=== PATIENT | female | born 1955 | race Caucasian/White ===

== ENCOUNTER 2018-10-08 05:45 | Day surgery (SDC) | payer OTHER ==
[~2018-10-08] VITALS: Ht 162.6 cm; Wt 84.4 kg
[~2018-10-08 05:45] MED LIST: FLUOXETINE HCL20 MG PO; HYDROCHLOROTHIA25 MG PO
[2018-10-08] MEDS ORDERED: NORVASC5 MG PO (06:00)
[2018-10-08] MEDS ORDERED: IRON18 MG PO (06:01)
[2018-10-08] MEDS ORDERED: NORCO 7.5-3251 EACH PO (10:04)
--- NOTE | 2018-10-08 11:46 | OR ---
[facility] [address], [place] [address] Signed DATE OF OPERATION: 10/08/2018 SURGEON: Joss Salazar MD PREOPERATIVE DIAGNOSIS: Gallbladder polyps versus gallstones. POSTOPERATIVE DIAGNOSIS: Chronic cholecystitis with cholelithiasis. PROCEDURE PERFORMED: Laparoscopic cholecystectomy without intraoperative cholangiogram. ESTIMATED BLOOD LOSS: None. FINDINGS: Lisa had 4 gallstones (2 mm, 3 mm, 5 mm and 10 mm). INDICATIONS: Lisa is a 63-year-old lady who has had an elevation of her liver function tests. However, she does not drink alcohol. Her body mass index is 33.5. They had stopped her cholesterol medication and her liver function tests did normalize. In the meantime, she had an initial ultrasound back in May 2014. There were either two gallbladder polyps or stones within the gallbladder. They were about 6 to 7 mm in diameter. A repeat ultrasound in June 2017 again showed these 2 echogenic foci without any change in size. She had come to my office last summer and we had had a long discussion regarding gallstones versus gallbladder polyps. Her primary care provider had retired and she established with a new primary care provider. A repeat ultrasound was ordered and one of the polypoid lesions was at least 10 mm if not 11 mm in diameter. The other one seemed to be the same size. Consequently, she was asked to see me once again with respect to the above. I explained to Lisa that any gallbladder polyp larger than 10 mm increases the risk of cancer. Unfortunately, gallbladder cancer is very severe. Only 3% of those patients are alive in 3 years. After a long discussion, she decided to have her gallbladder removed for definitive diagnosis and treatment. I gave her a [employer] brochure on the gallbladder. She understands the location and function of the gallbladder. She understands laparoscopic versus open cholecystectomy. We did review the expected intraop and postop course. There is risk to surgery including, but not limited to bleeding, infection, scarring, change in contour of the skin, damage to bowel damage to main bile duct, and incisional hernias. There is also the possibility for the Electronically Signed By: JOSS SALAZAR MD 10/08/18 1146 PATIENT NAME: LISA DEVLIN OPERATIVE REPORT DATE OF : 53 REPORT #: [id number] PHYSICIAN: JOSS SALAZAR MD PCP: KANNAN IVERSON MD REPORT IS CONFIDENTIAL AND NOT TO BE RELEASED WITHOUT AUTHORIZATION [facility] [address] [place] [id number] Signed need for additional procedures and/or treatments based on pathologic findings. She had expressed understanding and wished to proceed. PROCEDURE NOTE: I met with Lisa and her our preop area. We once again reviewed her findings in this idea of gall bladder polyps versus stones. After this, Lisa was taken into the operating room and placed in the supine position under general endotracheal tube anesthesia. She was given preoperative antibiotics along with subcutaneous heparin. SCDs were utilized. She was then prepped and draped in the usual sterile fashion. All trocars were placed in usual positions under direct visualization of camera without difficulty. We noticed that for her age she has very thin skin, almost no dermis. She also has almost orange appearance to the skin. We had taken pictures throughout for photodocumentation. We could see just a little bit of yellow discoloration in the liver. She has a moderate amount of fat within the abdomen itself. The gallbladder was grasped and elevated in the right upper quadrant. The color was unremarkable. It did not appear inflamed nor did it appear thickened. We dissected out the triangle of [place] with the help of our [place] dissector. We elected not to place an additional trocar with our fan retractor to help hold some of the fat down and out of the way. We inserted the intraoperative cholangiocatheter, but we could not get past the valves of [place]. Consequently, we placed 2 clips across the cystic duct and then we used our PDS Endoloop just beyond the clips to help secure the cystic duct stump. The clip had been placed on the cystic artery and it was divided. The gallbladder was then carefully removed from the gallbladder fossa with the help of cautery and placed into an EndoCatch bag. The right upper quadrant had been irrigated and suctioned out until clear. We used our laparoscopic suturing device to pass 0 Vicryl suture on either side of the fascia of the subxiphoid trocar site. This was tied down to close this fascia primarily. In the meantime, our circulating nurse opened the gallbladder on the back table. There was some mild cholesterolosis and we found for gallstones. The largest one was quite dark in color and I am sure this is the lesion the ultrasound was concerned about. After this, all the gas was allowed to escape and all the trocars were removed. We then closed the fascia of the supraumbilical trocar site with simple [id number] 0 Vicryl sutures. Local anesthetic was copiously injected in all trocar sites. Each trocar site was irrigated and suctioned out until clear. Local anesthetic was injected into all trocar sites. The skin and dermis of each trocar site were closed with interrupted 3-0 subcuticular Monocryl sutures. Dry gauze and tape were applied to all incisions. Lisa was then awakened from anesthesia, extubated in the OR, and taken to recovery room in stable condition. Joss Salazar MD Electronically Signed By: JOSS SALAZAR MD 10/08/18 1146 PATIENT NAME: LISA DEVLIN OPERATIVE REPORT DATE OF : 53 REPORT #: [id number] PHYSICIAN: JOSS SALAZAR MD PCP: KANNAN IVERSON MD REPORT IS CONFIDENTIAL AND NOT TO BE RELEASED WITHOUT AUTHORIZATION [address] [place], [place] [address] Signed [facility] /[id number] cc: MD Kannan Marino MD Copies: JOSS SALAZAR MD ~ Electronically Signed By: JOSS SALAZAR MD 10/08/18 1146 PATIENT NAME: LISA DEVLIN OPERATIVE REPORT DATE OF : 53 REPORT #: [id number] PHYSICIAN: JOSS SALAZAR MD PCP: KANNAN IVERSON MD REPORT IS CONFIDENTIAL AND NOT TO BE RELEASED WITHOUT AUTHORIZATION
== END 2018-10-08 13:30 | disposition home or self-care (01) ==
LOC: DS 05:45
PROVIDERS: Colon & Rectal Surgery
PROC: 0FT44ZZ Resection of Gallbladder, Percutaneous Endoscopic Approach (ICD-10-PCS; principal; 2018-10-08 06:45)
DX: K80.10 Calculus of gallbladder with chronic cholecystitis without obstruction (principal); I11.9 Hypertensive heart disease without heart failure; E78.5 Hyperlipidemia, unspecified; M19.90 Unspecified osteoarthritis, unspecified site; K21.9 Gastro-esophageal reflux disease without esophagitis; E66.9 Obesity, unspecified; D64.9 Anemia, unspecified; Z79.899 Other long term (current) drug therapy; Z68.33 Body mass index [BMI] 33.0-33.9, adult
CPT/HCPCS: 00790; J0330; J0690; J1100; J1644; J1885; J2250; J2405; J2704; J2765; J3010; J7120

== ENCOUNTER 2025-08-06 18:26 | Emergency (ER) | payer MEDICARE ==
[~2025-08-06] VITALS: Ht 162.6 cm; Wt 71.4 kg
[~2025-08-06 18:26] MED LIST changes: +IRON18 MG PO; +NORCO 7.5-3251 EACH PO; +NORVASC5 MG PO
[2025-08-06 20:10] LABS: BLOOD/HGB, URINE LARGE (Negative); KETONE, URINE NEGATIVE (Negative); LEUK ESTERASE, URINE LARGE (negative); NITRITE, URINE NEGATIVE (negative)
[2025-08-06 20:24] LABS: BACTERIA, URINE 2+ /hpf (negative); CASTS, URINE NONE SEEN \\lpf; CRYSTALS, URINE NONE SEEN (0-1+); EPITHELIAL CELLS, URINE SQUAMOUS 1+ /lpf (0-1+); REFLEX CULTURE, URINE Yes (No)
[2025-08-06] MEDS ORDERED: PYRIDIUM200 MG PO (20:40)
[2025-08-06] MEDS ORDERED: CEFDINIR300 MG PO (20:40)
[2025-08-06] MEDS ORDERED: PHENAZOPYRIDINE HCL 100 MG TAB PO ONE (20:45)
[2025-08-06] MEDS ORDERED: CEFDINIR 300 MG HOME.PACK PO ONE (20:45)
[2025-08-06 21:01] VITALS: BP 131/64
== END 2025-08-06 21:01 | disposition home or self-care (01) ==
LOC: ED 18:26
PROVIDERS: Family Medicine
DX: N39.0 Urinary tract infection, site not specified (principal); Z88.8 Allergy status to other drugs, medicaments and biological substances
CPT/HCPCS: 81001; 87088; 87186; 99283